=== PATIENT | female | born 2000 | race Caucasian/White ===

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

== ENCOUNTER 2019-04-03 10:19 | Emergency (ER) | payer MEDICAID, OTHER ==
[~2019-04-03] VITALS: Ht 160 cm; Wt 88.9 kg
[2019-04-03 10:24] VITALS: BP 129/72
--- NOTE | 2019-04-03 10:30 | NUR ---
Patient ambulated to bed 3. RN evaluating patient at bedside.
--- NOTE | 2019-04-03 10:30 | NUR ---
18 Y FEMALE C/O RED ELEVATED PAINFUL RASHES TO ABDOMEN, WAS TREATED WITH ANTIBIOTICS ON WEDNESDAY FROM PCP. PT COULD NOT REMEMBER THE NAME, GETTING WORSE TODAY. PATIENT STATES SHE HAS NOT YET FINISHED HER ANTIBIOTIC COURSE, 10 DAYS TOTAL TREATMENT SINCE WEDNESDAY. RASH TENDER TO TOUCH, PAIN 03/27. JUST DELIVERED A BABY ON 03/17. CURRENTLY . VSS AT THIS TIME. PT AA0X4. DENIES N/V. BED IS DOWN, LOCKED, BED RAIL X 1, ERMD TO SEE PT.
--- NOTE | 2019-04-03 10:32 | NUR ---
Dr. Winston evaluating patient at bedside.
--- NOTE | 2019-04-03 10:35 | NUR ---
dr garcia at bedside
[2019-04-03 11:00] VITALS: BP 132/70
--- NOTE | 2019-04-03 11:00 | NUR ---
Patient discharged with v/s stable. Written and verbal after care instructions given and explained. Patient verbalized understanding. Ambulatory with steady gait. All questions addressed prior to discharge. Advised to follow up with PMD. Pt instructed to continue taking prescribed antibiotics from pcp.
== END 2019-04-03 11:00 | disposition home or self-care (01) ==
LOC: MED 10:19
DX: R21 Rash and other nonspecific skin eruption (principal); L08.9 Local infection of the skin and subcutaneous tissue, unspecified; J45.909 Unspecified asthma, uncomplicated
CPT/HCPCS: 99281

== ENCOUNTER 2019-05-19 10:10 | Emergency (ER) | payer MEDICAID ==
[~2019-05-19] VITALS: Ht 160 cm; Wt 105.2 kg
[2019-05-19 10:12] VITALS: BP 108/76
--- NOTE | 2019-05-19 10:20 | NUR ---
18 Y FEMALE BIB SELF C/O BILAT BREAST RASH/ABCESS LIKE BUMP X2 MONTHS. PT STATES THE BUMP ON HER R BREAST POPPED LAST NIGHT. ABSCESS RED AND INFLAMMED. PT STATES RASH WAS ONCE SPREAD TO BILAT UPPER ABDOMEN BUT SHE WAS GIVEN ABX ONE MONTH AGO AND IT "KIND OF" WENT AWAY. DENIES N/V/F. VSS. AA0X4. BED IS DOWN, LOCKED, BED RAIL X 1, ERMD TO SEE PT HX: ANEMIA RX: IRON
--- NOTE | 2019-05-19 10:22 | NUR ---
DR BASSETT AT BEDSIDE
[2019-05-19 10:34] VITALS: BP 108/76
--- NOTE | 2019-05-19 10:34 | NUR ---
Patient discharged with v/s stable. Written and verbal after care instructions given and explained. Patient alert, oriented and verbalized understanding of instructions. Ambulatory with steady gait. All questions addressed prior to discharge. ID band removed. Patient advised to follow up with PMD. Rx of BACRTIM, KEFLEX, TRIAMCINOLONE TOPICAL OINTMENT given. Patient educated on indication of medication including possible reaction and side effects. Opportunity to ask questions provided and answered. INSTRUCTED TO KEEP WOUND DRY AND CLEAN.
== END 2019-05-19 10:34 | disposition home or self-care (01) ==
LOC: MED 10:10
DX: N61.1 Abscess of the breast and nipple (principal)
CPT/HCPCS: 99283

== ENCOUNTER 2020-05-15 14:06 | Emergency (ER) | payer MEDICAID ==
[~2020-05-15] VITALS: Ht 160 cm; Wt 97.5 kg
[2020-05-15 14:11] VITALS: BP 158/88
--- NOTE | 2020-05-15 14:16 | NUR ---
PATIENT AMBULATED TO BED 6
--- NOTE | 2020-05-15 14:25 | NUR ---
19 YEAR OLD FEMALE COMPLAINS OF RIGHT SIDED FACIAL DROOP X 11AM. PT UNABLE TO SMILE ON RIGHT SIDE. [employer] STRENGTH BILATERAL, NO WEAKNESS ON ANY SIDE. PT AOX4, BREATHING EVEN AND UNLABORED, SKIN WARM AND DRY. BED IN LOWEST POSITION, LOCKED, BED RAIL UPX1. PMH - ASTHMA, ANEMIA ALLERGIES - NKA
[2020-05-15] MEDS ORDERED: predniSONE 20 MG TAB PO ONE (14:30)
[2020-05-15 15:30] VITALS: BP 121/71
--- NOTE | 2020-05-15 15:30 | NUR ---
DPatient discharged with v/s stable. Written and verbal after care instructions about bells palsy given and explained. Patient alert, oriented and verbalized understanding of instructions. Ambulatory with steady gait. All questions addressed prior to discharge. ID band removed. Patient advised to follow up with PMD. Rx of prednisone and acyclovir given. Patient educated on indication of medication including possible reaction and side effects. Opportunity to ask questions provided and answered.
== END 2020-05-15 15:30 | disposition home or self-care (01) ==
LOC: MED 14:06
DX: G51.0 Bell's palsy (principal); R03.0 Elevated blood-pressure reading, without diagnosis of hypertension
CPT/HCPCS: 81025; 99283; J7512

== ENCOUNTER 2020-09-26 11:45 | Emergency (ER) | payer MEDICAID ==
[~2020-09-26] VITALS: Ht 160 cm; Wt 98.9 kg
[2020-09-26 12:02] VITALS: BP 124/89
[2020-09-26 12:05] VITALS: BP 124/89
--- NOTE | 2020-09-26 12:11 | NUR ---
20 Y/O FEMALE C/O INFLAMED TONSILS X2 DAYS. PATIENT HAS HAD STREP THROAT IN THE PAST. AIRWAY IS UNOBSTRUCTED. VSS. NO RESPIRATORY DISTRESS NOTED AT THIS TIME. PT DENIES COUGH/SOB/FEVER. PMH: ASTHMA NKDA
--- NOTE | 2020-09-26 13:30 | NUR ---
PT CALLED 3 TIMES, NO ANSWER. LWBS
== END 2020-09-26 12:11 | disposition left against medical advice (07) ==
LOC: MED 11:45
DX: J02.9 Acute pharyngitis, unspecified (principal); Z53.21 Procedure and treatment not carried out due to patient leaving prior to being seen by health care provider

== ENCOUNTER 2022-10-14 11:06 | Emergency (ER) | payer MEDICAID ==
--- NOTE | 2022-10-14 11:18 | NUR ---
called name in lobby and outside, no answer
--- NOTE | 2022-10-14 11:20 | NUR ---
called name in lobby and outside, no answer
== END 2022-10-14 11:25 | disposition left against medical advice (07) ==
LOC: MED 11:06
DX: M79.673 Pain in unspecified foot (principal); Z53.21 Procedure and treatment not carried out due to patient leaving prior to being seen by health care provider

== ENCOUNTER 2023-11-01 15:07 | Emergency (ER) | payer MEDICAID ==
[~2023-11-01] VITALS: Ht 167.6 cm; Wt 90.7 kg
[2023-11-01 15:36] VITALS: BP 118/81; PULSE 122; RESP 22; TEMP 100.1; O2SAT 98
[2023-11-01] MEDS ORDERED: PENICILLIN G BENZATHINE L-A 1.2 MU/2 ML SYR IM ONE (16:25)
[2023-11-01] MEDS ORDERED: IBUP-2213 PO (16:38)
[2023-11-01] MEDS ORDERED: PRED20TA5 PO (16:38)
[2023-11-01 17:59] LABS: FLU A ANTIGEN negative (NEGATIVE); FLU B ANTIGEN NEGATIVE (NEGATIVE)
== END 2023-11-01 17:21 | disposition home or self-care (01) ==
LOC: MED 15:07
DX: J02.0 Streptococcal pharyngitis (principal); Z20.822 Contact with and (suspected) exposure to COVID-19; Z79.899 Other long term (current) drug therapy; Z79.1 Long term (current) use of non-steroidal anti-inflammatories (NSAID)
CPT/HCPCS: 87426; 87804; 96372; 99283; J0561